=== PATIENT | female | born 1980 | race Caucasian/White ===

== ENCOUNTER 2020-12-02 23:20 | Emergency (ER) | payer SELFPAY ==
[~2020-12-02] VITALS: Ht 170.2 cm; Wt 11.4 kg
[~2020-12-02 23:20] MED LIST: ALPR0.5T6 PO; QUET25TA5 PO
--- NOTE | 2020-12-02 23:37 | PHYS DOC ---
Past History Past Medical History: Anxiety, Bipolar, Other Past Surgical History: Tubal ligation Smoking: Less than 1pk/day Alcohol Use: None Drug Use: None Adult General HPI HPI Patient is a 40-year-old female who presents with a chief complaint of right thumb pain. States that she jammed her finger yesterday while doing something and also got a splinter underneath of her thumbnail. States she pulled the splinter out but since then has had right thumb pain, 7 out of 10, sharp in nature since then. Denies any other injuries. Denies any fevers, chest pain, shortness of breath, nausea, vomiting. Review of Systems Review of Systems Review of systems otherwise unremarkable except noted in HPI Allergies Allergies Allergies Coded Allergies Type Severity Reaction Last Updated Verified Penicillins Allergy Intermediate 06/26/15 Yes tramadol Allergy Intermediate 12/06/13 Yes Physical Exam Physical Exam Constitutional: Well developed, well nourished, no acute distress, non-toxic appearance. [] HENT: Normocephalic, atraumatic Eyes: conjunctiva normal, no discharge. [] Neck: Normal range of motion, Skin: Warm, dry, no erythema, no rash. [] Extremities: Patient has tenderness at the distal tip of the right thumb with a small amount of swelling but no erythema or warmth. Patient has a small amount of blood under the tip of the thumbnail. Range of motion normal. Capillary refill normal. Gross sensation and range of motion normal. Neurologic: Alert and oriented X 3, normal motor function, normal sensory function, no focal deficits noted. [] Psychologic: Affect normal, judgement normal, mood normal. [] EKG EKG [] Radiology/Procedures Radiology/Procedures No acute osseous abnormalities, no foreign bodies or gas noted imaging [] Heart Score Risk Factors: Risk Factors: DM, Current or recent (<one month) smoker, HTN, HLP, family history of CAD, obesity. Risk Scores: Risk Factors: DM, Current or recent (<one month) smoker, HTN, HLP, family history of CAD, obesity. Course & Med Decision Making Course & Med Decision Making Patient is a 40-year-old female presents with right thumb pain after jamming it and getting a splinter under the nail Vital signs not concerning. Physical exam noted above. Patient started on clindamycin and given Percocet in the ED as she took ibuprofen before coming to the ED. Patient also requesting information to establish care with a primary care physician. Imaging not concerning. Discussed all findings with patient and recommended a pain regimen at home including her prescription pain medication, ibuprofen and ice. Given primary care physician contact information. Advised to call first thing in the morning to try and establish care and set up a follow-up visit in the next week or so for a wound check. Advised to come back to the ED with new or concerning symptoms. Patient grateful, verbalized understanding and agreed with plan of discharge. [] Dragon Disclaimer Dragon Disclaimer This electronic medical record was generated, in whole or in part, using a voice recognition dictation system. Departure Departure: Impression: Primary Impression: Pain of right thumb Additional Impression: Cellulitis of right thumb Condition: GOOD Referrals: PCP,NO (PCP) Patient Instructions: Cellulitis, [id number] Scripts Oxycodone HCl/Acetaminophen (Percocet 5-325 mg Tablet) 1 Each Tablet 1 TAB PO PRN BID PRN for thumb pain MDD 2 Tablet(s) for 3 Days, #6 TAB 0 Refills Prov: ELVIS OWENS MD 12/03/20 Clindamycin Hcl (CLINDAMYCIN HCL) 300 Mg Capsule 1 CAP PO TID for cellulitis for 7 Days, #21 CAP Prov: ELVIS OWENS MD 12/03/20 Problem Qualifiers ELVIS OWENS MD Dec 02, 2020 23:37
[2020-12-03] MEDS ORDERED: CLIN300C9 PO (00:30)
[2020-12-03] MEDS ORDERED: CLINDAMYCIN HCL 150 MG CAPSULE PO ONE (01:00)
[2020-12-03] MEDS ORDERED: oxyCODONE/APAP 5/325 1 TAB TABLET PO ONE (01:00)
[2020-12-03] MEDS ORDERED: OXYC-325 PO (01:07)
[2020-12-03 01:15] VITALS: BP 113/73
--- NOTE | 2020-12-03 02:42 | RAD ---
EXAM: XR FINGER(S)_RIGHT 2+VIEWS 12/03/2020 12:24 AM CLINICAL INDICATION: Right thumb injury COMPARISON: None TECHNIQUE: 3 views of the right hand FINDINGS: No acute fracture. Alignment is normal. Joint spaces are maintained. No soft tissue abnorm ality. IMPRESSION: No acute osseous abnormality. Electronically signed by: Nirmala Razo MD (12/03/2020 2:40 AM) [id number]
== END 2020-12-03 01:15 | disposition home or self-care (01) ==
LOC: ER 23:20
DX: L03.011 Cellulitis of right finger (principal); F41.9 Anxiety disorder, unspecified; F31.9 Bipolar disorder, unspecified; F17.200 Nicotine dependence, unspecified, uncomplicated; Z88.0 Allergy status to penicillin; Z88.6 Allergy status to analgesic agent
CPT/HCPCS: 73140; 99283

== ENCOUNTER 2021-02-16 00:46 | Emergency (ER) | payer SELFPAY ==
[~2021-02-16] VITALS: Ht 170.2 cm; Wt 110.0 kg
[~2021-02-16 00:46] MED LIST changes: +CLIN300C9 PO; +OXYC-325 PO
--- NOTE | 2021-02-16 00:48 | PHYS DOC ---
Past History Past Medical History: Anxiety, Bipolar, Kidney Stones, STD, UTI Past Medical History cellulitis Past Surgical History: , Tubal ligation Past Surgical History Endometrial ablation Smoking: Less than 1pk/day Alcohol Use: None Drug Use: None General Adult HPI: HPI: ".. I was going up a down escalator. And scraped his right adams pretty good about 4 days ago.... And in the last 24 hours it 's got really infected ... Red and swollen... I also have a little bit of a urinary dysuria... And a bad fractured tooth here on the right lower.... I usually see D[facility].. but this leg has gotten very swollen and painful looks like the scrapes areas are starting to drain.."... Patient is a 40 year old female who presents with above hx and complaints cellulitis of right adams-tibia. Patient has 4 to centimeter cut leonard that are inflamed and starting to drain. Patient has had MRSA before. Patient has no current striation but there is obvious erythema at site of abrasions/lacerations. Patient denies any history of immunosuppression. No history of recent travel. No specific ill contacts. Patient has subjective complaints also of dysuria. Patient also fractured molar tooth #31 and having continued pain at the site. Patient has past medical history of several ED visits. For pain complaints. Past medical history of anxiety, depression, endometriosis, bipolar disorder, GERD, MRSA, cellulitis, and STDs. Patient currently requesting antibiotics until she can follow-up with primary care. Patient does continue to smoke approximately a pack a day. Review of Systems: Review of Systems: Constitutional: Denies fever or chills Eyes: Denies change in visual acuity HENT: Denies nasal congestion or sore throat Respiratory: Denies cough or shortness of breath Cardiovascular: Denies chest pain or edema GI: Denies abdominal pain, nausea, vomiting, bloody stools or diarrhea : Denies dysuria Musculoskeletal: Denies back pain or joint pain Integument: Denies rash-complains of cellulitis at abrasion site right leg Neurologic: Denies headache, focal weakness or sensory changes Endocrine: Denies polyuria or polydipsia Lymphatic: Denies swollen glands Psychiatric: History of depression or anxiety Family History: Family History: Noncontributory to presentation Current Medications: Current Meds: See nursing for home meds Allergies: Allergies: Allergies Coded Allergies Type Severity Reaction Last Updated Verified Penicillins Allergy Intermediate 06/26/15 Yes tramadol Allergy Intermediate 12/06/13 Yes Physical Exam: PE: Constitutional: In acute distress, non-toxic appearance. [] HENT: Normocephalic, atraumatic, bilateral external ears normal, oropharynx moist, no oral exudates, nose normal. [] Eyes: PERRLA, EOMI, conjunctiva normal, no discharge. [] Neck: Normal range of motion, no tenderness, supple, no stridor. [] Cardiovascular:Heart rate regular rhythm, no murmur [] Lungs & Thorax: Bilateral breath sounds equal apex with scattered wheezes on auscultation [] Abdomen: Bowel sounds normal, soft, no tenderness, no masses, no pulsatile masses. Obese. Old surgery scar Skin: Warm, dry, no erythema, right anterior tibia area abrasion and cellulitis Back: No tenderness, no CVA tenderness. [] Extremities: No tenderness, no cyanosis, no clubbing, ROM intact, right lower leg edema. [] Neurologic: Alert and oriented X 3, normal motor function, normal sensory function, no focal deficits noted. [] Psychologic: Affect n anxious, judgement normal, mood normal. [] EKG: EKG: [] Radiology/Procedures: Radiology/Procedures: [] Heart Score: C/O Chest Pain: N/A Risk Factors: Risk Factors: DM, Current or recent (<one month) smoker, HTN, HLP, family history of CAD, obesity. Risk Scores: Score 0 - 3: 2.5% MACE over next 6 weeks - Discharge Home Score 4 - 6: 20.3% MACE over next 6 weeks - Admit for Clinical Observation Score 7 - 10: 72.7% MACE over next 6 weeks - Early Invasive Strategies Course & Med Decision Making: Course & Med Decision Making Pertinent Labs and Imaging studies reviewed. (See chart for details) Patient currently declines admission for IV antibiotics. Patient given dose of Rocephin 1 g and then started on Bactrim DS to take twice a day. Patient to use warm compresses with salt water and Epson salts 4 times a day to the area of cellulitis. After compresses massage in Polysporin. Patient monitor site closely for any striations or signs of excess increase infection. Patient follow-up pending lab culture. Patient to push vitamin C drinks. Patient follow-up primary care. Impression: 1. Cellulitis right lower leg 2. Continued tobacco use 3. Mild leukocytosis 11.7 4. Drug screen positive for marijuana and amphetamines 5. Urinary tract infection [] Dragon Disclaimer: Dragon Disclaimer: This electronic medical record was generated, in whole or in part, using a voice recognition dictation system. Departure Departure: Referrals: PCP,NIESHA (PCP) Scripts Sulfamethoxazole/Trimethoprim (BACTRIM DS TABLET) 1 Each Tablet 1 TAB PO BID for cellulitis for 10 Days, #20 TAB 0 Refills Prov: AIDA JOHNSON MD 02/16/21 Sherry Disclaimer This chart was dictated in whole or in part using Voice Recognition software in a busy, high-work load, and often noisy Emergency Department environment. It may contain unintended and wholly unrecognized errors or omissions. AIDA JOHNSON MD Feb 16, 2021 00:48
[2021-02-16 01:10] VITALS: BP 183/111
[2021-02-16] MEDS ORDERED: SULF1TAB24 PO (01:57)
[2021-02-16 02:00] LABS: BARBITURATES NEG (NEG); BENZODIAZEPINES NEG (NEG); CANNABINOIDS POS (NEG); COCAINE NEG (NEG); METHADONE NEG (NEG); OPIATES NEG (NEG); PHENCYCLIDINE NEG (NEG)
[2021-02-16] MEDS ORDERED: DIPH,PERTUSS(ACELL),TET VAC/PF 0.5 ML SYRINGE. VAX IM ONE (02:00)
[2021-02-16] MEDS ORDERED: SMZ/TMP 800/160MG TABLET. PO ONE (02:00)
[2021-02-16] MEDS ORDERED: KETOROLAC 30 MG/ML VIAL. IVP ONE (02:00)
[2021-02-16] MEDS ORDERED: BACITRACIN ZINC TOPICAL OINT PACKET. TP ONE (02:00)
[2021-02-16 02:04] LABS: BILIRUBIN,URINE SMALL (NEG); CLARITY,URINE HAZY; COLOR,URINE YELLOW; GLUCOSE,URINE NEG (NEG)
[2021-02-16 02:05] LABS: BACTERIA,URINE FEW /HPF (0-FEW); NITRITE,URINE NEG (NEG); SQUAMOUS EPITHELIAL CELL,UR FEW /LPF; UROBILINOGEN,URINE 0.2 mg/dL (0.2 mg/dL); WBC,URINE >40 /HPF (0-4)
[2021-02-16] MEDS ORDERED: IV NORMAL SALINE 50ML 50 ML ONE (02:09)
[2021-02-16] MEDS ORDERED: cefTRIAXone SODIUM 1 GM VIAL ONE (02:09)
[2021-02-16 02:10] LABS: AMPHETAMINE/METHAMPHETAMINE POS (NEG)
[2021-02-16 02:23] LABS: BASO % 0 % (0-3); EOS # 0.3 x10^3/uL (0.0-0.7); EOS % 2 % (0-3); HEMATOCRIT 40.1 % (36.0-47.0); HEMOGLOBIN 13.3 g/dL (12.0-15.5); LYMPH # 1.5 x10^3/uL (1.0-4.8); LYMPH % 13 % (24-48); MEAN CORPUSCULAR HEMOGLOBIN 29 pg (25-35); MEAN CORPUSCULAR HGB CONC 33 g/dL (31-37); MEAN CORPUSCULAR VOLUME 86 fL (79-100); MONO # 1.1 x10^3/uL (0.0-1.1); MONO % 9 % (0-9); NEUT # 8.8 x10^3uL (1.8-7.7); NEUT % 76 % (31-73); PLATELET COUNT 288 x10^3/uL (140-400); RED BLOOD COUNT 4.65 x10^6/uL (3.50-5.40); RED CELL DISTRIBUTION WIDTH 13.3 % (11.5-14.5); WHITE BLOOD COUNT 11.7 x10^3/uL (4.0-11.0)
[2021-02-16 02:29] LABS: CALCIUM 8.8 mg/dL (8.5-10.1); GFR 62.1; POTASSIUM 3.6 mmol/L (3.5-5.1)
== END 2021-02-16 03:02 | disposition home or self-care (01) ==
LOC: ER 00:46
DX: L03.116 Cellulitis of left lower limb (principal); N39.0 Urinary tract infection, site not specified; D72.829 Elevated white blood cell count, unspecified; F12.10 Cannabis abuse, uncomplicated; F15.10 Other stimulant abuse, uncomplicated; F41.9 Anxiety disorder, unspecified; F31.9 Bipolar disorder, unspecified; F17.210 Nicotine dependence, cigarettes, uncomplicated; Z87.442 Personal history of urinary calculi; Z87.440 Personal history of urinary (tract) infections; Z88.0 Allergy status to penicillin; Z88.8 Allergy status to other drugs, medicaments and biological substances
CPT/HCPCS: 36415; 80048; 80307; 81001; 81025; 85025; 87040; 87086; 87491; 87591; 90471; 90715; 96365; 96375; 99284; J0696; J1885

== ENCOUNTER 2021-02-17 23:17 | Inpatient (IN) | payer SELFPAY ==
[~2021-02-17] VITALS: Ht 170.2 cm; Wt 110.0 kg
[~2021-02-17 23:17] MED LIST changes: +SULF1TAB24 PO
--- NOTE | 2021-02-18 00:29 | PHYS DOC ---
Past History Past Medical History: Anxiety, Bipolar, Kidney Stones, STD, UTI Additional Past Medical Histor: patellar/femoral syndrome Past Surgical History: , Tubal ligation Additional Past Surgical Histo: ablation Smoking: Less than 1pk/day Alcohol Use: None Drug Use: None Adult General Chief Complaint Chief Complaint: LOWER EXT PAIN HPI HPI Patient is a 40-year-old female who presents with right lower extremity pain and infection. States that little over a week ago she tripped and fell on an escalator and scraped the front of her adams. States of the next few days her leg became infected. States she came into the emergency department and was given antibiotics. States that it did not seem to help, and redness and swelling have gotten worse. Denies headache, fevers, neck pain, chest pain, shortness of breath, abdominal pain, nausea, vomiting. States that the pain is approximately 5 out of 10, dull and achy in nature with no radiation. States she is still able to ambulate but it causes her discomfort. Review of Systems Review of Systems Review of systems otherwise unremarkable except noted in HPI Allergies Allergies Allergies Coded Allergies Type Severity Reaction Last Updated Verified Penicillins Allergy Intermediate hives 02/16/21 Yes tramadol Allergy Intermediate 12/06/13 Yes Physical Exam Physical Exam Constitutional: Well developed, well nourished, no acute distress, non-toxic appearance. [] HENT: Normocephalic, atraumatic, bilateral external ears normal, oropharynx moist, no oral exudates, nose normal. [] Neck: Normal range of motion, no tenderness, Cardiovascular: Sinus tachycardia Lungs & Thorax: Bilateral breath sounds clear to auscultation [] Abdomen: soft, no tenderness, no masses, no pulsatile masses. [] Extremities: Significant circumferential redness, swelling, tenderness, tenderness to palpation on right lower extremity with multiple abrasions. Neurologic: Alert and oriented X 3, normal motor function, normal sensory function, no focal deficits noted. [] Psychologic: Affect normal, judgement normal, mood normal. [] Current Patient Data Vital Signs Vital Signs Date Time Temp Pulse Resp B/P (MAP) Pulse Ox O2 Delivery O2 Flow Rate FiO2 02/17/21 23:20 99.8 106 20 125/76 (92) 98 Room Air EKG EKG [] Radiology/Procedures Radiology/Procedures [] Heart Score C/O Chest Pain: No Risk Factors: Risk Factors: DM, Current or recent (<one month) smoker, HTN, HLP, family history of CAD, obesity. Risk Scores: Risk Factors: DM, Current or recent (<one month) smoker, HTN, HLP, family history of CAD, obesity. Course & Med Decision Making Course & Med Decision Making Patient is a 40-year-old female who presents with right lower extremity swelling, pain and infection Vital signs notable for tachycardia. Physical exam noted above. Patient started on antibiotics in the ED. Given pain medication while in the ED. Laboratory analysis notable for leukocytosis and elevated CRP. Discussed findings with patient and recommended admission for continued evaluation, treatment for her cellulitis. Patient grateful, verbalized understanding and agreed with plan of admission. [] Dragon Disclaimer Dragon Disclaimer This electronic medical record was generated, in whole or in part, using a voice recognition dictation system. Departure Departure: Impression: Primary Impression: Cellulitis Disposition: ADMITTED INPT THIS [facility] Admitting Physician: Efraín Kaur Condition: IMPROVED Referrals: PCP,NIESHA (PCP) ELVIS OWENS MD Feb 18, 2021 00:29
[2021-02-18] MEDS ORDERED: CLINDAMYCIN 900 MG/6 ML VIAL. IM ONE (00:30)
[2021-02-18] MEDS ORDERED: oxyCODONE/APAP 5/325 1 TAB TABLET PO ONE (00:45)
--- NOTE | 2021-02-18 00:50 | RAD ---
XR RT TIBIA+FIBULA History: Reason: Fall trauma 1 week ago, right lower leg pain, swelling redness / Spl. Instructions: / History: Technique: 2 views right tibia and fibula. Comparison: None. Findings: Normal alignment. No fracture. Right lower extremity soft tissue edema. Mild knee DJD. Plantar calcan eal spur. Impression: 1. No acute osseous abnormality. Electronically signed by: Robert Torres DO (02/18/2021 12:48 AM) [facility]
[2021-02-18 01:22] LABS: BASO % 0 % (0-3); EOS # 0.1 x10^3/uL (0.0-0.7); EOS % 1 % (0-3); HEMATOCRIT 37.1 % (36.0-47.0); HEMOGLOBIN 12.4 g/dL (12.0-15.5); LYMPH # 1.2 x10^3/uL (1.0-4.8); LYMPH % 9 % (24-48); MEAN CORPUSCULAR HEMOGLOBIN 29 pg (25-35); MEAN CORPUSCULAR HGB CONC 33 g/dL (31-37); MEAN CORPUSCULAR VOLUME 87 fL (79-100); MONO # 1.2 x10^3/uL (0.0-1.1); MONO % 9 % (0-9); NEUT # 10.9 x10^3uL (1.8-7.7); NEUT % 81 % (31-73); PLATELET COUNT 286 x10^3/uL (140-400); RED BLOOD COUNT 4.27 x10^6/uL (3.50-5.40); RED CELL DISTRIBUTION WIDTH 13.4 % (11.5-14.5); WHITE BLOOD COUNT 13.5 x10^3/uL (4.0-11.0)
[2021-02-18 01:34] LABS: CALCIUM 8.7 mg/dL (8.5-10.1); CREATININE 1.1 mg/dL (0.6-1.0); GFR 55.6; POTASSIUM 3.5 mmol/L (3.5-5.1)
[2021-02-18 01:37] LABS: C REACTIVE PROTEIN 152.8 mg/L (0-3.3)
[2021-02-18] MEDS ORDERED: CLINDAMYCIN 900MG PREMIX 50 ML IV ONE (01:45)
[2021-02-18] MEDS ORDERED: VANCOMYCIN 1.5 GM in IV NORMAL SALINE 500ML 500 ML IV ONE (03:15)
[2021-02-18] MEDS ORDERED: VANCOMYCIN PER PHARMACY MC PRN (03:30)
[2021-02-18] MEDS ORDERED: VANCOMYCIN 1 GM in IV NORMAL SALINE 250ML 250 ML IV ONE ×2 (03:30→09:00)
[2021-02-18] MEDS ORDERED: VANCOMYCIN 1 GM VIAL. ONE (03:36)
[2021-02-18] MEDS ORDERED: IV NORMAL SALINE 250ML 250 ML ONE (03:36)
[2021-02-18 04:31] VITALS: BP 114/70
[2021-02-18] MEDS ORDERED: VANCOMYCIN 1 GM in IV NORMAL SALINE 250ML 250 ML IV SCH (09:00)
--- NOTE | 2021-02-18 09:31 | HP ---
ADMIT DATE: 02/18/2021 ATTENDING PHYSICIAN: Dr. Salinas. CHIEF COMPLAINT: Right leg pain. HISTORY OF PRESENT ILLNESS: The patient is a 40-year-old female with a right leg injury from 4 days ago, she had fallen on an escalator. The skin was broken. She was seen in the ED, she was prescribed Bactrim only. Unfortunately, this was not effective and swelling, erythema persisted, minimal drainage noted. There is no obvious abscess. She was given clindamycin and vancomycin in the ED last night, the ER physician called me for admission. I have continued the vancomycin. The patient states it is very painful, hurts to bear weight, no fevers or chills. She is admitted then for inpatient IV antibiotics. PAST MEDICAL HISTORY: Significant for remote history of bipolar disorder, generalized anxiety, kidney stones, urinary tract infection. She has had a previous tubal ligation. She also has so-called patellofemoral syndrome. ALLERGIES: SHE HAS ALLERGIES TO PENICILLIN AND TRAMADOL. CURRENT MEDICATIONS: Only p.r.n. meds. She had been on Seroquel. This has been discontinued. She takes some Xanax occasionally. FAMILY HISTORY: Both parents are alive at age 61. Mom has diabetes, adult onset. SOCIAL HISTORY: She is a smoker, half pack of cigarettes a day. No alcohol use. 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 REVIEW OF SYSTEMS: Significant for the localized pain, hurts to bear weight. No fevers, chills, some nausea, but no vomiting. All other systems reviewed and turned to be negative. PHYSICAL EXAMINATION: GENERAL: When I saw her, this is a pleasant young female. INITIAL VITAL SIGNS: Showed a blood pressure 114/70, pulse is 83 and regular, temperature 98.2 degrees Fahrenheit, and her oxygen saturation is 98% on room air. HEENT: Head is without trauma. Pupils are reactive. Sclerae nonicteric. The oropharynx is clear. NECK: Supple, no bruits identified. LUNGS: Clear to auscultation. CARDIOVASCULAR: Showed regular heart tones. No gallops. ABDOMEN: Soft. EXTREMITIES: Showed no cyanosis. The right anterior adams is red, swollen, edematous. There are no palpable cords. I did draw a line of demarcation above the knee and distally towards the ankle. There are some open wounds that have healed. There is no obvious pus or drainage identified. SKIN: Otherwise warm and dry. NEUROLOGIC: Focally intact. Speech is fluent. No deficits. PERTINENT LABORATORY AND X-RAY STUDIES: She had x-rays, plain films of the leg, which showed no gas gangrene. There is documented swelling, no bony fractures identified. The hemoglobin was 12.4 g/dL with a white count of 13,500. Electrolytes within normal range. Nonfasting blood sugar 104. Creatinine is 1.1 mg percent. ASSESSMENT: 1. A 40-year-old female with cellulitis of the right anterior adams secondary to a fall. The skin has been broken, most likely this is an methicillin-resistant Staphylococcus aureus infection. 2. Associated pain. 3. Smoking history as noted. PLAN: 1. IV vancomycin has been ordered twice a day. 2. Morphine p.r.n. pain. 3. Diet as tolerated. 4. Home meds were reviewed. COLLIN SALINAS MD DR: EDY/suly JOB#: [id number] / [id number]
[2021-02-18 11:30] VITALS: BP 123/80
[2021-02-18] MEDS: MORPHINE SULFATE 4 MG/ML DISP.SYRIN. IV PRN ×3 (12:36→20:53)
[2021-02-18 15:00] VITALS: BP 101/64
[2021-02-18] MEDS: VANCOMYCIN 1.5 GM in IV NORMAL SALINE 500ML 500 ML IV SCH (16:52)
[2021-02-18 19:45] VITALS: BP 99/64
[2021-02-19] MEDS: VANCOMYCIN 1.5 GM in IV NORMAL SALINE 500ML 500 ML IV SCH (04:18)
[2021-02-19] MEDS: MORPHINE SULFATE 4 MG/ML DISP.SYRIN. IV PRN ×2 (04:19→08:52)
[2021-02-19 06:35] LABS: CREATININE 0.9 mg/dL (0.6-1.0); GFR 70.1
[2021-02-19 08:13] VITALS: BP 123/67
[2021-02-19] MEDS ORDERED: LACTOBACILLUS RHAMNOSUS GG 1 CAPSULE. PO SCH (09:00)
== END 2021-02-19 10:00 | disposition left against medical advice (07) | DRG 603 ==
LOC: ER 23:17 → 1 SOUTH 02-18 03:55
PROVIDERS: ADMIT Hospitalist; ATTEND Hospitalist
DX: L03.115 Cellulitis of right lower limb (principal); B95.62 Methicillin resistant Staphylococcus aureus infection as the cause of diseases classified elsewhere; F17.210 Nicotine dependence, cigarettes, uncomplicated; F31.9 Bipolar disorder, unspecified; Z53.29 Procedure and treatment not carried out because of patient's decision for other reasons; W10.0XXA Fall (on)(from) escalator, initial encounter; F41.1 Generalized anxiety disorder; Z83.3 Family history of diabetes mellitus; Z87.442 Personal history of urinary calculi; Z98.51 Tubal ligation status; Y93.89 Activity, other specified; Y92.89 Other specified places as the place of occurrence of the external cause; Y99.8 Other external cause status
CPT/HCPCS: 36415; 73590; 80048; 82565; 83605; 85025; 86140; 96365; J2270; J3370; J3490; J7040; J7050; 99285-25